=== PATIENT | female | born 1980 | race African-American/Black ===

== ENCOUNTER 2024-11-04 20:41 | Emergency (ER) | payer SELFPAY ==
[~2024-11-04] VITALS: Ht 172.7 cm; Wt 87.0 kg
[2024-11-04 20:57] VITALS: O2SAT 100
[2024-11-04 21:45] LABS: BASOPHILS % 1.0 % (0.0-2.0); EOSINOPHILS % 2.8 % (0.0-5.0); HEMATOCRIT. 34.6 % (36.0-48.0); HEMOGLOBIN. 10.7 g/dL (12.0-16.0); LYMPHOCYTES % 11.6 % (20.0-50.0); MEAN PLATELET VOLUME 9.4 fl (7.4-10.4); MONOCYTES % 6.2 % (2.0-8.0); NEUTROPHILS % 78.4 % (40.0-76.0); PLATELET 287 x1000/uL (130-400); RED BLOOD CELL COUNT 4.67 mill/uL (4.2-5.4); RED CELL DISTRIBUTION WIDTH 18.7 % (11.6-14.6)
[2024-11-04 21:57] LABS: CREATININE 0.9 mg/dL (0.6-1.0)
[2024-11-04 21:58] LABS: UREA NITROGEN BLOOD 13 mg/dL (9-23)
[2024-11-04 21:59] LABS: ASPARTATE AMINOTRANSFERASE 19 IU/L (<34)
[2024-11-04 22:00] LABS: BILIRUBIN DIRECT 0.2 mg/dL (<=3.0); BILIRUBIN TOTAL 1.0 mg/dL (0.1-1.0); PROTEIN TOTAL 7.2 g/dL (6.0-8.3)
[2024-11-04 22:19] LABS: TROPONIN I HIGH SENSITIVITY < 4 ng/L (3.0-34)
[2024-11-04] MEDS: SODIUM CHLORIDE 0.9% 1,000 ML IV ONE (22:26)
[2024-11-04 23:26] VITALS: BP 126/92; PULSE 89; RESP 20; TEMP 36.9; O2SAT 96
== END 2024-11-04 23:30 | disposition home or self-care (01) ==
LOC: ER 21:04
DX: E10.65 Type 1 diabetes mellitus with hyperglycemia (principal); Z79.4 Long term (current) use of insulin
CPT/HCPCS: 99283; 96360; 80076; 80048; 82010; 82962; 83690; 85025; 84484; 36415; J7030; A4606